=== PATIENT | female | born 1995 | race Caucasian/White ===

== ENCOUNTER 2017-06-06 15:39 | Emergency (ER) | payer BC ==
[2017-06-06 16:06] VITALS: BP 127/79; PULSE 72; TEMP 99.1; BMI 21.1
--- NOTE | 2017-06-06 16:31 | PDOC ---
History of Present Illness - General Chief Complaint: Rash Stated Complaint: RASH Time Seen by Provider: 06/06/17 16:16 History Source: Patient Exam Limitations: No Limitations - History of Present Illness Initial Comments: 06/06/17 16:30 Patient had onset of mildly pruritic primarily nonpruritic rash to her left arms on Wednesday which is progressively worsened to cover all of her body. has been fighting a cold, and using [id number] NyQuil and DayQuil. However denies fevers or sore throat pain. has had runny nose, mild cough , general malaise. 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 Timing/Duration: reports: just prior to arrival, getting worse Severity: Yes: mild, moderate Location: reports: generalized Respiratory Risk Factors: reports: no cause identified Associated Symptoms: reports: malaise, nasal congestion, rash. denies: sore throat Past History - Travel Traveled outside of the country in the last 30 days: No Close contact w/someone who was outside of country & ill: No - Past Medical History Allergies/Adverse Reactions: Allergies Allergy/AdvReac Type Severity Reaction Status Date / Time No Known Allergies Allergy Verified 06/06/17 16:06 Home Medications: Ambulatory Orders Azithromycin [Zithromax -] 250 mg PO UTDICT #6 tab 06/06/17 COPD: No Thyroid Disease: No - Suicide/Smoking/Psychosocial Hx Smoking History: Never smoked Have you smoked in the past 12 months: No Information on smoking cessation initiated: No Hx Alcohol Use: No Drug/Substance Use Hx: No Substance Use Type: None Review of Systems - Review of Systems Able to Perform ROS?: Yes Is the patient limited Georgian proficient: Yes Constitutional: Yes: Symptoms Reported, See HPI, Chills, Loss of Appetite, Malaise. No: Fever HEENTM: Yes: Symptoms Reported, See HPI, Nose Congestion. No: Throat Pain Respiratory: Yes: Symptoms reported, See HPI, Cough (nonproductive) Integumentary: Yes: Symptoms Reported, See HPI, Rash. No: Pruritus All Other Systems: Reviewed and Negative *Physical Exam - Vital Signs Last Vital Signs Temp Pulse Resp BP Pulse Ox 99.1 F 72 18 127/79 100 06/06/17 16:05 06/06/17 16:05 06/06/17 16:05 06/06/17 16:05 06/06/17 16:05 - Physical Exam General Appearance: Yes: Nourished, Appropriately Dressed HEENT: positive: KAROLINE, TMs Normal (congested but landmarks easily visualized), Pharynx Normal (faint erythema however no exudate or swelling to tonsils), Nasal Congestion, Rhinorrhea. negative: Sinus Tenderness Respiratory/Chest: positive: Lungs Clear, Normal Breath Sounds Gastrointestinal/Abdominal: positive: Normal Bowel Sounds, Soft. negative: Tender Musculoskeletal: positive: Normal Inspection. negative: Vertebral Tenderness Extremity: positive: Normal Inspection, Normal Range of Motion Integumentary: positive: Dry, Warm, Pale Neurologic: positive: [employer] II-XII NML intact, Fully Oriented, Alert, Normal Mood/ Affect, Normal Response, Motor Strength 10/16 Progress Note - Progress Note Progress Note: [place] rash, will treat with azithromycin *DC/Admit/Observation/Transfer Diagnosis at time of Disposition: [place] - Discharge Dispostion Disposition: HOME Condition at time of disposition: Stable Admit: No - Prescriptions Prescriptions: Azithromycin [Zithromax -] 250 mg PO UTDICT #6 tab - Referrals Referrals: Sukhdev Rod MD [Primary Care Provider] - - Patient Instructions Printed Discharge Instructions: DI for Scarlet Fever Additional Instructions: Rest, drink lots of fluids: Teas, water, soups Eat cold things: Ice cream, ice pops, ice chips Saltwater gargles Steamy showers/seem to face break up mucus Avoid contact with others until fevers and pain resolved Lots of handwashing and good hygiene, this is contagious Azithromycin as directed Tylenol or Motrin for fever and pain Followup with private physician in one to 2 days as needed if not improving Return to emergency department for worsened symptoms, fevers, dehydration - Post Discharge Activity Forms/Work/School Notes: Back to Work
== END 2017-06-06 16:31 | disposition home or self-care (01) ==
LOC: JERFT 15:39
DX: A38.9 Scarlet fever, uncomplicated (principal)
CPT/HCPCS: 99281-25

== ENCOUNTER 2018-05-24 17:34 | Emergency (ER) | payer BC, OTHER ==
[2018-05-24 18:01] VITALS: BP 119/66; PULSE 77; TEMP 98.3; BMI 21.1
--- NOTE | 2018-05-24 18:29 | PDOC ---
History of Present Illness - General Chief Complaint: Cold Symptoms Stated Complaint: Cold Symptoms Time Seen by Provider: 05/24/18 18:10 - History of Present Illness Initial Comments: 05/24/18 18:28 23-year-old female without comorbidities presents for evaluation of malaise subjective fever and intermittent cough times one day Past History - Past Medical History Allergies/Adverse Reactions: Allergies Allergy/AdvReac Type Severity Reaction Status Date / Time No Known Allergies Allergy Verified 06/06/17 16:06 Home Medications: Ambulatory Orders NK [No Known Home Medication] 05/24/18 COPD: No Thyroid Disease: No - Surgical History Cardiac Surgery: No GI Surgery: No Neurologic Surgery: No - Immunization History Immunization Up to Date: No - Suicide/Smoking/Psychosocial Hx Smoking History: Never smoked Have you smoked in the past 12 months: No Information on smoking cessation initiated: No Hx Alcohol Use: No Drug/Substance Use Hx: No Substance Use Type: None Review of Systems - Review of Systems Constitutional: Yes: Fever, Malaise HEENTM: Yes: Throat Pain Respiratory: Yes: Cough *Physical Exam - Vital Signs Last Vital Signs Temp Pulse Resp BP Pulse Ox 98.3 F 77 18 119/66 100 05/24/18 17:38 05/24/18 17:38 05/24/18 17:38 05/24/18 17:38 05/24/18 17:38 - Physical Exam Comments: 05/24/18 18:28 HEAD: NC/AT EYES: Conjuntiva clear Ears: Canals and TM's normal NOSE: No d/c THROAT: Moist mucous membrances, oral pharanx mildly erythemic, uvula midline NECK: Supple without adenopathy CARDIAC: S1 S2 LUNGS: CTA Full and Equal breath sounds ABDOMEN: Soft NT ND MS: Full ROM in all joints without edema NEUROLOGIC: No gross sensory or motor deficits, NVID SKIN: Normal color and temperature no lesions or rashes Moderate Sedation - Procedure Monitoring Vital Signs: Procedure Monitoring Vital Signs Temperature 98.3 F 05/24/18 17:38 Pulse Rate 77 05/24/18 17:38 Respiratory Rate 18 05/24/18 17:38 Blood Pressure 119/66 05/24/18 17:38 O2 Sat by Pulse Oximetry (%) 100 05/24/18 17:38 *DC/Admit/Observation/Transfer Diagnosis at time of Disposition: Upper respiratory infection - Discharge Dispostion Disposition: HOME Condition at time of disposition: Stable Decision to Admit order: No - Referrals - Patient Instructions Printed Discharge Instructions: DI for Viral Upper Respiratory Infection -- Adult Additional Instructions: He may continue Tylenol Motrin for pain and fever if needed. Follow-up with your primary care physician in one to 2 days for further evaluation and treatment options. Rapid strep and influenza was negative today. - Post Discharge Activity
== END 2018-05-24 18:55 | disposition home or self-care (01) ==
LOC: JERFT 17:34
DX: J06.9 Acute upper respiratory infection, unspecified (principal)
CPT/HCPCS: 87070; 87804; 87880; 99281-25